=== PATIENT | male | born 1970 | race Caucasian/White ===

== ENCOUNTER → 2018-07-28 15:49 | Outpatient (CLI) | payer OTHER, SELFPAY ==
[2018-07-28 15:06] VITALS: BMI 21.9
--- NOTE | 2018-07-28 15:54 | RAD_ITS ---
STUDY: X-RAY CHEST REASON FOR EXAM: Male, 47 years old. Cough, not feeling well lately. TECHNIQUE: PA and lateral chest COMPARISON: 02/15/2009 chest x-ray FINDINGS: There is generalized pulmonary hyperlucency and hyperinflation with diffuse mild coarsening of the pulmonary interstitium, flattening of hemidiaphragms, increased AP diameter of the chest, consistent with COPD/emphysema. The lungs are otherwise clear bilaterally with no infiltrate, effusion, pneumothorax or suspicious focal pulmonary lesion. Normal cardiomediastinal silhouette, brent and pleural margins. Mild thoracal lumbar scoliosis, osteopenia, mild thoracic kyphosis. No acute osseous process is evident. 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 Electronically Signed: Darron Nobles MD at 17:58 EST Tel , Service support ,
[2018-07-28 18:36] LABS: Absolute Lymphocyte Count 2.04 X10^3/ul (0.83-4.51); Absolute Neutrophil Count 4.1 X10^3/uL (2.0-7.7); Basophil# 0.05 X10^3/uL; Basophil% 0.7 % (0-1); Eosinophil# 0.07 X10^3/uL; Hematocrit 49.3 % (40-54); Hemoglobin 16.6 g/dl (13.0-16.5); Lymphocyte # 2.04 X10^3/ul (4.0); Lymphocyte % 28.9 % (19-41); Mean Corp Hgb Conc 33.7 g/gl (32-36); Mean Corpuscular Hgb 31.6 pg (27.0-32.0); Mean Corpuscular Volume 93.7 fL (80-94); Mean Platelet Vol. 10.1 fl (6.2-12.0); Monocyte# 0.77 X10^3/uL; Monocyte% 10.9 % (0-10); Neutrophil # 4.12 X10^3/uL (2.7-7.7); Neutrophil % 58.2 % (47-70); Platelet Count 378 K/mm3 (150-450); RBC Distribution Width CV 12.7 % (11.6-14.6); RBC Distribution Width SD 43.3 fl (35.1-43.9); Red Blood Count 5.26 M/mm3 (4.6-6.2); White Blood Count 7.1 K/mm3 (4.4-11.0)
[2018-07-28 18:37] LABS: POSITIVE COUNT NO; POSITIVE DIFFERENTIAL NO; POSITIVE MORPHOLOGY NO
[2018-07-28 19:01] LABS: ALB/GLOB Ratio 1.1 RATIO (0.9-2.4); AST(SGOT) 20 U/L (15-37); Alanine Aminotransfer ALT/SGPT 26 U/L (16-61); Albumin, Serum 3.7 g/dL (3.2-5.0); Alkaline Phosphatase 61 U/L (45-117); Anion Gap 9 (5-15); BUN 11 mg/dL (7-18); BUN/Creat Ratio 11.9 RATIO (10-20); Calcium,Total 8.8 mg/dL (8.5-10.1); Chloride 105 mmol/L (98-107); Creatinine, Serum 0.92 mg/dL (0.70-1.30); EST Glomerular Filtration Rate 92 mL/min (>60); Est Glom Filt Rate - Afr Amer 111 mL/min (>60); Globulin 3.5 g/dL (2.2-4.2); Glucose 122 mg/dL (74-106); Potassium 3.9 mmol/L (3.5-5.1); Protein, Total 7.2 g/dL (6.4-8.2); Sodium Level 140 mmol/L (136-145)
--- OUTSIDE RECORDS SUMMARY | 2018-09-13 23:06 | XMS RPT_ITS ---
:1970 Author Organization OHIP Care Team Providers Name Role Phone Luca Mazariegos Attending Unavailable Luca Mazariegos Referring Unavailable Luca Mazariegos Attending Unavailable Luca Mazariegos Referring Unavailable Luca Mazariegos Primary Care Unavailable PROBLEMS PROBLEMS DATE TYPE CONDITION / CODE ATTENDING STATUS SOURCE 07/28/2018 Unknown R53.83 - Other Luca Mazariegos Active [place] fatigue / Community R53.83(ICD-10) Hospital Repository 07/28/2018 Unknown J44.9 - Chronic Luca Mazariegos Active [facility] pulmonary Hospital disease, Repository unspecified / J44.9(ICD-10) PROCEDURES PROCEDURES No Procedure Records FoundRESULTS RESULTS CBC W/DIFF, AUTOMATED Collected: 07/28/2018 Status: F Source: [place] 3:55 PM [facility] REPOSITORY TYPE CODE TESTS RESULT OUT OF RANGE REFERENCE UNITS LAB L100.1000 4.4-11.0 K/mm3 Normal WBC 7.1 LAB L100.1200 4.6-6.2 M/mm3 Normal RBC 5.26 LAB L100.1300 13.0-16.5 g/dl High HGB 16.6 LAB L100.1400 40-54 % Normal HCT 49.3 LAB L100.1500 80-94 fL Normal MCV 93.7 LAB L100.1600 27.0-32.0 pg Normal MCH 31.6 LAB L100.1700 32-36 g/gl Normal MCHC 33.7 LAB L100.1810 11.6-14.6 % Normal RDW CV 12.7 LAB L100.1820 35.1-43.9 fl Normal RDW SD 43.3 LAB L100.1900 150-450 K/mm3 Normal PLT 378 LAB L100.2000 6.2-12.0 fl Normal MPV 10.1 LAB L100.2100 47-70 % Normal NEUT% 58.2 LAB L100.2200 19-41 % Normal LY% 28.9 LAB L100.2300 0-10 % High MONO% 10.9 LAB L100.2400 0-5 % Normal EO% 1.0 LAB L100.2500 0-1 % Normal BASO% 0.7 LAB L100.2550 0.0-0.9 % Normal IM GRAN % 0.300 Result Comment: IG% - Immature Granulocytes (promyelocytes, myelocytes and metamyelocytes) > 1% indicates that a LEFT SHIFT is Present. LAB L100.2620 2.0-7.7 X10 3/uL Normal Absolute Neut 4.1 LAB L100.2720 0.83-4.51 X10 3/ul Normal Absolute Lymph 2.04 Performed By: #### L100.0100 #### [facility] [address] [place], [address] COMPREHENSIVE METABOLIC Collected: 07/28/2018 Status: F Source: [facility] 3:55 PM [facility] REPOSITORY TYPE CODE TESTS RESULT OUT OF RANGE REFERENCE UNITS LAB L501.0100 74-106 mg/dL High GLU 122 Result Comment: Fasting Glucose result from 100 to 125 mg/dL suggests IMPAIRED HOMEOSTASIS per A.D.A. criteria. Please note revised GLUCOSE reference range effective 2017. LAB L501.1000 7-18 mg/dL Normal BUN 11 LAB L501.1100 0.70-1.30 mg/dL Normal CREAT,SERUM 0.92 Result Comment: The validity of the calculated GFR AND GFRAA in patients over 70 years has not been determined. Clinical correlation is essential. LAB L501.1110 >60 mL/min Normal EST GFR 92 Result Comment: Non- GFR Calc LAB L501.1115 >60 mL/min Normal EST GFR - AA 111 Result Comment: GFR Calc LAB L501.1300 10-20 RATIO Normal BUN/CRE 11.9 LAB L501.1500 6.4-8.2 g/dL T Normal PROT 7.2 LAB L501.1800 3.2-5.0 g/dL Normal ALB 3.7 LAB L501.1950 2.2-4.2 g/dL Normal GLOB 3.5 LAB L501.2000 0.9-2.4 RATIO Normal A/G 1.1 LAB L501.2200 8.5-10.1 mg/dL CA Normal 8.8 LAB L501.4100 15-37 U/L Normal AST 20 LAB L501.4305 45-117 U/L Normal ALK P 61 LAB L501.4405 16-61 U/L Normal ALT 26 LAB L501.4600 0.20-1.00 mg/dL T Normal BILI 0.40 LAB L501.5300 136-145 mmol/L NA Normal 140 LAB L501.5600 3.5-5.1 mmol/L K Normal 3.9 LAB L501.5900 98-107 mmol/L CL Normal 105 LAB L501.6100 21.0-32.0 mmol/L Normal CO2 26.0 LAB L501.6200 5-15 Normal GAP 9 Performed By: #### L500.4050 #### [facility] [address] [place], [address] CHEST PA AND LATERAL Observed: 07/28/2018 Status: F Source: [place] 3:54 PM [facility] REPOSITORY [facility] Imaging Services [address] [place] [id number] Chest PA and Lateral MR#: [id number] Acct: [id number] Name: WHITNEY SALTER Rep #: [id number] : 1970 M 47 From: aDrron Nobles MD PCP: Luca Mazariegos DO Status: REG CLI Study: Chest PA and Lateral Date of Exam: 07/28/18 Exam# [id number] Ordering Dr: Luca Mazariegos DO STUDY: X-RAY CHEST REASON FOR EXAM: Male, 47 years old. Cough, not feeling well lately. TECHNIQUE: PA and lateral chest COMPARISON: 02/15/2009 chest x-ray FINDINGS: There is generalized pulmonary hyperlucency and hyperinflation with diffuse mild coarsening of the pulmonary interstitium, flattening of hemidiaphragms, increased AP diameter of the chest, consistent with COPD/emphysema. The lungs are otherwise clear bilaterally with no infiltrate, effusion, pneumothorax or suspicious focal pulmonary lesion. Normal cardiomediastinal silhouette, brent and pleural margins. Mild thoracal lumbar scoliosis, osteopenia, mild thoracic kyphosis. No acute osseous process is evident. 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 Electronically Signed: Darron Nobles MD at 17:58 EST Tel , Service support , CC: Luca Mazariegos DO Passenger Attendant: Signed INTERNAL MEDICINE Observed: 07/28/2018 Status: F Source: [place] OFFICE VISIT 3:43 PM [facility] [address] [place] [address] [place] [address] OFFICE VISIT Date of Service: 07/28/18 MR#: [id number] Acct: [id number] Name: WHITNEY SALTER Rep #: [id number] : 1970 Provider: Luca Mazariegos DO Age/Sex: 47/M Location: [facility] Status: Signed Intake Vital Signs07/28/18 Height 6 ft 07/28/18 Weight: 162 lb 07/28/18 Body Mass Index (BMI) 21.9 07/28/18 Blood Pressure 142/82 H Intake Visit Reasons: SICK X 6 WKS Chief Complaint: Sick x 6 weeks Is patient in pain?: No Allergies erythromycin base Allergy (Severe, Verified 07/28/18 15:09) Nausea Medications amoxicillin 875 mg-potassium clavulanate 125 mg tablet 1 tab PO BID #14 tab 07/28/18 [Rx Confirmed 07/28/18] PFSH Surgical History History of eye surgery (Acute) Family History Father Diabetes Social History Smoking Status: Light Smoker (<10/day) alcohol intake: current alcohol intake frequency: holidays/special occasions only substance use type: does not use what type of physical activity do you participate in: none HPI HPI Chief Complaint: Sick x 6 weeks Details: WHITNEY SALTER, is a 47 M who presents to the office today for an examination because he is profoundly tired. 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 He has been increasingly short winded he has had a progressively increasing productive cough of green and yellow sputum. He also says he is having some cyclical fevers low-grade. ROS Const Constitutional: Positive for fever(s); no chills, fatigue, frequent falls, malaise, weakness, sleep problems or change in appetite Eyes Eyes: No blurry vision, change in vision, double vision, discharge or visual disturbances ENT ENT: Positive for sinus pressure and post nasal drip; no abnormal hearing, ear pain, ear pressure, tinnitus or dizziness/vertigo Resp Respiratory: Positive for cough Cough: Yes productive and chest congestion; no shortness of breath or wheezing Cardio Cardiology: No chest pain at rest, chest pain with exertion, shortness of breath, dyspnea on exertion, generalized swelling, irregular heart rhythm, lightheadedness, orthopnea, fast heart rate or palpitations Gastro GI: No abdominal pain, change in bowel habits, constipation, diarrhea, nausea/dyspepsia or vomiting Musc Musculoskeletal: No joint pain, back pain, joint swelling, limited range of motion, numbness or tingling Skin Skin: No change in skin color, itching, rash or wounds Breast Breast: No breast lump or breast pain Neuro Neurology: No frequent falls, weakness, visual disturbances, abnormal hearing, numbness, tingling, unsteady gait/balance, dizziness, loss of vision or memory loss Psych Psychiatric: No change in appetite, No memory loss, No anxiety, No depression, No Thoughts of harming yourself/Others Endo Endocrine: No fatigue, heat intolerance, increased thirst/drinking, increased hunger or increased urination Aller/Imm Allergy/Immunologic: No wheezing, itchy eyes or seasonal allergy symptoms Warren/Lymp Hematologic/Lymphatic: No easy bleeding, easy bruising or enlarged lymph nodes Exam Const General: ill appearing chronically, disheveled Nutritional Appearance: thin Orientation: oriented x3 HENMT Head: normal to inspection Ears: hearing grossly normal bilaterally Nose: external nose normal Face and sinus: normal facial exam Mouth: oral mucosae normal Eyes General: appearance normal, both eyes and all related structures Neck Neck: no lymphadenopathy Neck mass: No Thyroid: thyroid normal Lymphatic: no lymphadenopathy noted Resp Effort AND Inspection: able to speak in complete sentences, audible wheezes, cough Quality of cough: productive Auscultation: Right: Diminished Base, Dullness to Percussion, Bilateral: Rales, Expiratory Wheezes, Rhonchi Cardio Rate: regular rate Rhythm: regular rhythm GI Inspection: normal to inspection Auscultation: normal bowel sounds Skin General: no rashes or lesions noted Rashes: no rashes Neuro General: oriented x3 Cranial Nerves: CN's II-XI intact bilaterally Extrem General: normal exam except as noted Assessment AND Plan Problems 1. Acute exacerbation of chronic obstructive bronchitis J44.1 2. Chronic fatigue R53.82 Plan This patient came in for a checkup on his medicine. However he has not taken Ambien or his other medications for some time because for the last 6-8 weeks he has been increasingly fatigued. He states he has had a chronic productive cough which is getting worse and is productive of mucopurulent sputum. 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 Chest x-ray and blood work were ordered I started him on an antibiotic because he obviously has some infectious process on top of whatever else we may find in the lungs. Follow-up will be dependent upon the results of the labs were ordered. Orders Orders: Medications New: Coding Level of Care Code Off vis,est,level 3 Diagnoses Acute exacerbation of chronic obstructive bronchitis J44.1 Chronic fatigue R53.82 Fatigue type: chronic, unspecified 07/28/18 1543 <Electronically signed by Luca Mazariegos DO> Date Luca Mazariegos DO Cosigner Signature: Date (if applicable) CC: ALLERGIES ALLERGIES DATE TYPE / CODE NAME / CODE REACTION SEVERITY SOURCE 07/28/2018 Drug erythromycin Nausea [facility] Allergy/416 base/[id number]([facility] 160501([facility] ED CT) Repository ENCOUNTERS ENCOUNTERS ADMIT/DISCHARGE ACCOUNT ADMITTING ENCOUNTER LOCATION SOURCE NUMBER CLASS 07/28/2018 [id number] Ambulatory [facility] ing:MTLAB Repository 07/28/2018/ [id number] Ambulatory BMSBuilding:B [place] [address] 9 MS.BIM [facility] Repository PAYERS PAYERS ENCOUNTER GUARANTOR PAYER SUBSCRIBER SOURCE 07/28/2018 WHITNEY SALTER10628 Primary WHITNEY D REXDOB: [place] Insurance:[employer] [id number] [place], [place] icy Number: Hospital [id number]: [id number] Repository [phone] () Date:[place] [id number]: 07/28/2018 Secondary NOT GIVENUNK [place] Insurance:SELF PAY [facility] Number: Effective Repository Date:2018-07-28 07/28/2018 WHITNEY [id number] Primary WHITNEY D REXDOB: [place] Insurance:[employer] [id number] [place], [place] icy Number: Hospital [id number]: 330 [id number] Repository [phone] () Date:3780-14-30[address] [address]BY: 07/28/2018 Secondary NOT GIVENUNK [place] Insurance:SELF PAY [facility] Number: Effective Repository Date:2018-07-20
== END ==
PROVIDERS: Family Provider Family Medicine; PCP Family Medicine; Referring Provider Family Medicine; Visit Provider Family Medicine
DX: J44.9 Chronic obstructive pulmonary disease, unspecified (principal); R05 Cough; R53.83 Other fatigue
CPT/HCPCS: 36415; 71046; 80053; 85025